=== PATIENT | male | born 1965 | race Caucasian/White ===

== ENCOUNTER → 2024-07-25 08:13 | Outpatient (REF) | payer OTHER, SELFPAY | LOC: RCS 08:13 | PROVIDERS: ATTENDING PHYSICIAN Nuclear Medicine Nuclear Cardiology; FAMILY PHYSICIAN Internal Medicine | DX: I25.10 Atherosclerotic heart disease of native coronary artery without angina pectoris (principal); Z95.5 Presence of coronary angioplasty implant and graft; R93.1 Abnormal findings on diagnostic imaging of heart and coronary circulation | CPT/HCPCS: 93306 ==

== ENCOUNTER 2024-12-06 14:00 | Emergency (ER) | payer OTHER, SELFPAY ==
[2024-12-06 14:03] VITALS: BP 132/94
--- NOTE | 2024-12-06 15:03 | ED.GENMED ---
History of Present Illness
General
Chief Complaint: Breathing Problem
Time Seen by Provider: 12/06/24 15:03
History of Present Illness
History of Present Illness:
TIME OF INITIAL EVALUATION
- 3:05 PM
REVIEW OF OLD RECORDS
- The patient has a history sleep apnea on CPAP, he has had inferior STEMI with stent to RCA in 2021 and is known [address] Whitfield. Echo from this past July showed an EF of 65% and the previously seen wall motion abnormalities had resolved.
CHIEF COMPLAINT(S)
Chest pain and tingling down the arms.
HISTORY OF PRESENT ILLNESS
The patient is a 59-year-old male with a history of myocardial infarction in 2021, during which a stent was placed in the right coronary artery. The patient was here mostly for peace of mind, due to recent symptoms reminiscent of his past experience
with a heart attack. The patient reported the onset of chest pain occurring for the past four weeks in a localized area, as indicated by his gesture with one finger, and described occasional tingling down the arms. The patient associated physical
exertion, such as going up and down stairs, with dyspnea, leading to huffing and puffing. The patient recalled feeling similarly to his past heart attack experience, describing a 'byron vu' sensation. The patient did not suffer diaphoresis or
pressure/squeezing sensations but has experienced palpitations while at rest that resolved spontaneously. Currently, his chest pain is minimal, rating it as a one out of ten in severity. He also mentioned intermittent swelling in the legs,
particularly noticeable after wearing crew socks all day. The patient reported minimal tenderness on palpation of the chest area and denies having any significant pain. Stress related to the patients wifes recent diagnosis of Alzheimers disease has
also been contributing to his overall stress levels. He mentioned using a CPAP machine for sleep apnea regularly and having an inhaler for seasonal flair-ups during blooming times, denying a chronic asthma condition. An electrocardiogram performed
during the visit did not show acute changes indicative of myocardial infarction.
ADDITIONAL HISTORY OBTAINED FROM SOURCES OTHER THAN THE PATIENT
This section is not included, as no external sources were identified in the conversation.
EXTERNAL RECORDS REVIEWED
Based on previous ER records, the patient had an echocardiogram in July of this year, indicating normal wall motion. The cardiologists report was also reviewed.
CHRONIC MEDICAL CONDITIONS SIGNIFICANTLY AFFECTING CARE
Known coronary artery disease with past myocardial infarction and stent placement in 2021.
Sleep apnea for which the patient uses a CPAP machine.
SOCIAL DETERMINANTS AFFECTING HEALTH
The patient reported increased stress due to his wifes recent Alzheimers diagnosis, affecting his mental health.
REVIEW OF SYSTEMS
- Cardiovascular: Chest pain, tingling down arms, palpitations at rest, minimal swelling in legs.
- Respiratory: Dyspnea on exertion, no ongoing asthma symptoms.
- General: Stress due to family health circumstances.
PHYSICAL EXAM
- General: Well appearing in no distress
- HEENT: Moist oral mucosa
- Cardiovascular: No murmurs, normal heart rate, regular rhythm, mild left anterior chest wall tenderness
- Pulmonary: No respiratory distress, breath sounds are clear and equal
- Abdomen: Soft with no peritoneal signs, no tenderness
- Neurologic: Excellent strength all extremities, no coordination deficits
- Psychiatric: Appropriate mental status, normal insight and judgement
- Extremities: Nontender, trace if any lower extremity edema, moves all extremities equally
- Skin: No rash, no lesions
PROBLEM LIST
Acute Problems
- Chest pain with a history of myocardial infarction.
- Increased stress due to family circumstances.
Chronic Problems
- Coronary artery disease.
- Sleep apnea.
PLAN
1. Cardiac blood work to be drawn to assess cardiac enzyme levels.
2. Notification to be sent to the cardiology group previously involved in the patients care.
3. Consideration for a referral to cardiology for further evaluation and management.
4. Patient to receive a chest X-ray to evaluate respiratory symptoms.
5. Monitor and address stress-related symptoms with possible mental health support due to his wifes Alzheimer�s diagnosis.
DIFFERENTIAL DIAGNOSIS
The Differential Diagnosis includes, in no particular order and is not limited to:
1. Angina pectoris.
2. Myocardial infarction.
3. Gastroesophageal reflux disease.
4. Musculoskeletal pain (e.g., costochondritis).
5. Pulmonary embolism.
6. Aortic dissection.
7. Pericarditis.
8. Anxiety-related psychosomatic pain.
9. Heart failure exacerbation.
10. Chronic obstructive pulmonary disease exacerbation.
RADIOLOGY
- Chest x-ray obtained
EKG
- Sinus 71, inferior Q waves otherwise no acute ST abnormality
LABS
- Troponin and BNP are normal
UPDATE
-SUMMARY OF ENCOUNTER
The 59-year-old male patient presented to the emergency department with chest pain and tingling down the arms, similar to symptoms experienced during a previous myocardial infarction in 2021. The patient has a history of coronary artery disease and
a stent placement. An EKG performed in the emergency department did not show acute changes indicative of a myocardial infarction. Communication was made with Dr. Mueller, the cook helper meat solution design engineer for the patients usual cook helper meat, Dr. Fajardo.
The cook helper meat confirmed there was no immediate need for intervention, and the patient will receive a follow-up sooner than the initial appointment scheduled for the end of the month. The patient was advised to come in for an evaluation as soon as
possible.
DISPOSITION
Discharge.
ASSESSMENT
Potential non-acute chest pain not requiring immediate intervention.
PLAN
Notify the chest pain hotline for expedited follow-up with cardiology. Ensure the patient is seen by the cardiology department earlier than previously scheduled.
INDEPENDENT REVIEW OF LABS AND INTERPRETATION OF TESTS
My independent review of the EKG indicates no acute changes reminiscent of previous myocardial infarction.
MANAGEMENT OF THE PATIENTS CARE WAS DISCUSSED WITH
Communication was made with Dr. Whitfield regarding the patients condition and management plan -he agrees that there is no clear indication for bedside cardiology consultation at this time
PATIENT EDUCATION AND COUNSELING
The patient was informed about the plans for expedited follow-up with cardiology and reassured about the findings in the emergency room, emphasizing the current stability of his symptoms.
FOLLOW-UP INSTRUCTIONS
Patient instructed to follow up with cardiology as early as next week for further evaluation.
MEDICAL DECISION MAKING
Chronic conditions affecting care: Coronary artery disease, Sleep apnea.
-Complexity of Data Reviewed:
Ddx includes 1) Angina pectoris, 2) Myocardial infarction, 3) Gastroesophageal reflux disease, 4) Musculoskeletal pain (e.g., costochondritis), 5) Pulmonary embolism, 6) Aortic dissection, 7) Pericarditis, 8) Anxiety-related psychosomatic pain, 9)
Heart failure exacerbation, 10) Chronic obstructive pulmonary disease exacerbation.
-Data:
Category 2: My independent interpretation of the EKG indicates no acute myocardial infarction changes.
Category 3: Discussion of management with Dr. Mueller, cook helper meat solution design engineer for the patients primary cook helper meat, Dr. Fajardo.
-Risk:
Consideration of Admission/Observation: Escalation of care, including admission/observation, was considered given the complexity and risk of the patients presenting complaint. However, ultimately, the patient is deemed safe for outpatient management
with close follow-up. Reasoning: Work-up reassuring, does not reveal any acute life-threatening processes, patients symptoms well controlled upon reevaluation, reexamination is reassuring, vitals are stable, patient agreeable with discharge,
reliable for follow-up.
Care significantly affected by Social Determinants of Health: Increased stress due to wifes recent Alzheimers diagnosis affecting mental health.
DIAGNOSIS
1. Chest Pain (ICD-10: R07.9)
2. Coronary Artery Disease, historical myocardial infarction (ICD-10: I25.10)
3. 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
The patient appears very comfortable on reassessment at 5:35 PM
Past History
Past History
ED Past Medical History: DC and Other (Sleep apnea, On meds for HTN and Hypercholesterolemia but states that this was just after his heart attack and he does not have either.)
ED Past Surgical History: None and Cardiac (stent)
Social History
Tobacco: Non-smoker
Alcohol: None
Personal:
Living: with family
Family History
Family History: Other (Father with pancreatic cancer, uncle WITH liver cancer and uncle with bladder cancer)
Phy Exam
Physical Exam
Physical Exam:
See HPI
Scores
Heart Failure Risk
Heart Failure Risk Score: Not Applicable
Course
Orders/Labs/Results
Orders:
Orders
12/06/24 14:00
EKG [Electrocardiogram (*1)] Urgent
Reason for Study: Shortness of Breath
12/06/24 14:01
EKG- Treatment ONCE
12/06/24 15:15
CR Chest - 2 Views Urgent
Comment:
Reason For Exam: cp sob
12/06/24 15:25
Complete Blood Count/With Diff Urgent
Comprehensive Metabolic Panel Urgent
Magnesium Urgent
NT-proBNP Urgent
Troponin I Urgent
Abnormal Lab Results
12/06/24
15:25
RBC 4.57 L 10^6/uL
(4.70-6.10)
Monocytes % 9.6 H %
(1.7-9.3)
Chloride 108 H mmol/L
(98-107)
12/06/24 15:25
12/06/24 15:25
Vital Signs
Initial and Last Documented VS:
Initial Vital Signs
Temp Pulse Resp BP Pulse Ox
37.1 C 78 16 132/94 98
12/06/24 14:03 12/06/24 14:03 12/06/24 14:03 12/06/24 14:03 12/06/24 14:03
Last Documented Vital Signs
Temp Pulse Resp BP Pulse Ox
37.1 C 73 19 113/79 96
12/06/24 14:03 12/06/24 17:00 12/06/24 17:00 12/06/24 17:00 12/06/24 17:00
*Pulse Oximetry
SaO2: 98
Oxygen Mode of Delivery: Room air
Patient hypoxic: no
*Critical Care Note
Total Time (30-74mins, 75-104mins- exclusive of procedures): Not Applicable
ED Attending Note
-
Portions of this chart may have been created with voice recognition software.� Occasional wrong word or��sound alike� substitutions may have occurred due to the inherent limitations of voice recognition software.
Discharge Plan
Departure
Patient Disposition: Home (Routine Discharge)
Date of Disposition: 12/06/24
Time of Disposition: 17:32
Patient with high blood pressure during this ER visit?: Yes
Discharge Problem:
Chest pain
Instructions: *[facility] Heart Failure Instructions, BLOOD PRESSURE
Prescriptions:
No Action
multivitamin [One Daily] 1 EACH tablet
1 ea PO DAILY
ascorbic acid (vitamin C) [Vitamin C] 1,000 MG tablet
1,000 mg PO DAILY
aspirin [Adult Aspirin Regimen] 81 MG tablet,delayed release (DR/EC)
81 mg PO DAILY
loratadine-pseudoephedrine 120 MG/5 MG tablet extended release 12 hr
1 tab PO DAILY
fiber 1 EACH tablet
1 tab PO DAILY
atorvastatin 80 MG tablet
80 mg PO QPM Qty: 90 5RF
metoprolol succinate 25 MG tablet extended release 24 hr
25 mg PO DAILY Qty: 90 5RF
lisinopril 2.5 MG tablet
2.5 mg PO DAILY Qty: 90 5RF
ticagrelor [Brilinta] 90 MG tablet
90 mg PO BID Qty: 180 5RF
Referrals:
Fitz Souza MD [Family Provider, Internal Medicine]
Activity Restrictions/Additional Instructions:
EKG and cardiac blood work showed no sign of heart attack. Return here if worse or other concerns. Follow-up with Dr. Childress. I am notifying their office to try to get you in sooner next week.
Interventions
Interventions:
*Risk Screen - Suicide Last Done: 12/06/24 14:06
*General Assessment Last Done: 12/06/24 14:06
*Neglect/Abuse Screening Last Done: 12/06/24 14:06
*ED- Fall Risk Assessment Last Done: 12/06/24 15:43
*ED COVID-19 Vaccine History Last Done: 12/06/24 15:43
ED- Cardiac Assessment Last Done: 12/06/24 15:44
ED- Pulmonary Assessment Last Done: 12/06/24 15:44
Discharge Date and Time
Print Language: GUYANESE
[2024-12-06 15:31] LABS: Hematocrit 39.1 % (39.0-52.0); Hemoglobin 13.5 g/dL (13.0-18.0); Mean Corp Hgb Conc. 34.5 g/dL (33.0-37.0); Mean Corpuscular Volume 85.6 fL (80.0-94.0); Nucleated Red Blood Cells % 0 % (-); Platelet Count 172 10^3/uL (130-400); Red Cell Dist. Width 13.2 % (11.5-14.5)
[2024-12-06 15:43] VITALS: BP 121/75
[2024-12-06 15:46] LABS: ALT (SGPT) 32 U/L (0-50); AST (SGOT) 24 U/L (17-59); Albumin 4.5 g/dl (3.5-5.0); Alkaline Phosphatase 78 U/L (38-126); Blood Urea Nitrogen 9 mg/dl (9-20); Calcium 9.2 mg/dl (8.4-10.2); Carbon Dioxide 27 mmol/L (22-30); Chloride 108 mmol/L (98-107); Glucose 86 mg/dl (70-99); Magnesium 2.0 mg/dl (1.6-2.3); Potassium 3.9 mmol/L (3.5-5.1); Sodium 140 mmol/L (135-145); Total Protein 7.3 g/dl (6.3-8.2); eGFR > 60.00
[2024-12-06 15:58] LABS: Troponin I < 0.012 ng/ml
[2024-12-06 16:00] VITALS: BP 117/73
[2024-12-06 17:00] VITALS: BP 113/79
== END 2024-12-06 17:47 | disposition home or self-care (01) ==
LOC: EMR 14:00
PROVIDERS: EMERGENCY PHYSICIAN Emergency Medicine; FAMILY PHYSICIAN Internal Medicine
DX: R07.89 Other chest pain (principal); I10 Essential (primary) hypertension; I25.2 Old myocardial infarction; I25.10 Atherosclerotic heart disease of native coronary artery without angina pectoris; F41.9 Anxiety disorder, unspecified
CPT/HCPCS: 99285; 71046; 80053; 83735; 83880; 84484; 85025; 93005

== ENCOUNTER → 2024-12-26 08:05 | Outpatient (REF) | payer OTHER, SELFPAY | LOC: RCS 08:05 | PROVIDERS: ATTENDING PHYSICIAN Physician Assistant; FAMILY PHYSICIAN Internal Medicine | DX: I25.10 Atherosclerotic heart disease of native coronary artery without angina pectoris (principal); Z95.5 Presence of coronary angioplasty implant and graft; I25.2 Old myocardial infarction; R07.89 Other chest pain | CPT/HCPCS: 78452; 93017; A9500 ==